=== PATIENT | male | born 1960 | race Caucasian/White ===

== ENCOUNTER 2018-06-10 13:10 | Outpatient (CLI) | payer MEDICARE | END 2018-06-10 13:11 | disposition home or self-care (01) | LOC: C.USIC 13:10 | DX: N18.3 Chronic kidney disease, stage 3 (moderate) (principal) ==

== ENCOUNTER 2018-06-19 09:47 | Outpatient (CLI) | payer MEDICARE | END 2018-06-19 09:48 | disposition home or self-care (01) | LOC: C.PAT 09:47 | DX: H25.041 Posterior subcapsular polar age-related cataract, right eye (principal) ==

== ENCOUNTER 2018-06-27 07:02 | Day surgery (SDC) | payer MEDICARE ==
[2013-09-01 08:30] VITALS: PULSE 131
[2018-06-19 10:14] VITALS: BMI 28.5
[~2018-06-27 07:02] MED LIST: Cyclopentolate 1% Opth (2 ml) OD SCH; Lactated Ringer's 500 ML IV ONE; Phenylephrine 2.5% Opht Soln OD SCH; Tropicamide 0.5% Opht Sol OD SCH
[2018-06-27] MEDS ORDERED: Povidone Iodine Ophthalmic 5% Soln ONE (07:28)
[2018-06-27] MEDS ORDERED: Carbachol 0.01% IO ONE (07:28)
[2018-06-27] MEDS ORDERED: Tetracaine 0.5% Ophth (OR ONLY) ONE (07:28)
[2018-06-27] MEDS ORDERED: Chondroitin/Hyaluronate Opth Syringe KIT (0.55 ml-0.5 ml) IO ONE (07:29)
[2018-06-27] MEDS ORDERED: Tobramycin/Dexamethasone OPHT OINT ONE (07:29)
[2018-06-27] MEDS ORDERED: Hyaluronidase Human, Recombi 150 U/ML VIAL ONE (07:29)
[2018-06-27] MEDS ORDERED: Lidocaine 2% MPF (5 ml) Inj ONE (07:29)
[2018-06-27] MEDS ORDERED: Tropicamide 1% Opht SOLUTION OD SCH (08:30)
[2018-06-27] MEDS ORDERED: Propofol 10 mg/ml Inj (20 ML) ONE (09:18)
[2018-06-27 10:23] VITALS: O2SAT 98
[2018-06-27 10:56] VITALS: BP 172/83; PULSE 68; RESP 18; TEMP 97.8
--- NOTE | 2018-06-27 20:48 | OP ---
PROCEDURE DATE: 06/27/2018 PREOPERATIVE DIAGNOSIS: Posterior subcapsular matured cataract, right eye. POSTOPERATIVE DIAGNOSIS: Posterior subcapsular matured cataract, right eye. OPERATIVE PROCEDURE: Cataract extraction with lens implant, right eye. ATTENDING: Leno Good MD TYPE OF ANESTHESIA: Retrobulbar block. COMPLICATIONS: None. ESTIMATED BLOOD LOSS: Zero. PROCEDURE: The patient was brought to the operating room and properly identified. Anesthesia staff administered intravenous sedation and retrobulbar block was given to the surgical eye. The patient was then prepped and draped in the usual sterile fashion. Attention was turned to the surgical eye. A lid speculum was placed into interpalpebral fissure. Sitting temporally, two paracentesis incisions were made. The anterior chamber was filled with viscoelastic and a triplanar clear corneal incision was made. Using a cystitome, anterior capsular leaflet was created. Utrata forceps were used to create a continuous curvilinear capsulorrhexis. Balanced salt solution on a cannula was used to hydrodissect and hydrodelineate the lens. The lens was then phacoemulsified with no complications. Automated irrigation and aspiration was used to remove the cortex. Viscoelastic was used to deepen the anterior chamber. The lens was placed in the capsular bag. Automated irrigation and aspiration was used to remove the viscoelastic. The anterior chamber was filled with Miochol. The wounds were hydrated with balanced salt solution. There was noted to be no leak at the end of the case and the lens was well positioned. The lid speculum was removed. The eye was given antibiotics and steroids and covered with a patch and shield. The patient was returned to the recovery room in stable condition. Leon Good MD
== END 2018-06-27 11:07 | disposition home or self-care (01) ==
LOC: C.SDS 07:02
PROVIDERS: ATTEND Ophthalmology
DX: H25.041 Posterior subcapsular polar age-related cataract, right eye (principal); E11.9 Type 2 diabetes mellitus without complications; Z79.4 Long term (current) use of insulin; I48.91 Unspecified atrial fibrillation; Z79.01 Long term (current) use of anticoagulants; I11.0 Hypertensive heart disease with heart failure; I50.9 Heart failure, unspecified
CPT/HCPCS: 66984; 82948; J2704; J3470; V2632